=== PATIENT | female | born 1945 | race Caucasian/White ===

== ENCOUNTER 2023-07-17 12:53 | Emergency (ER) | payer MEDICARE ==
--- NOTE | 2023-07-17 13:02 | ED ---
Skin/Abscess/FB HPI - General Source: patient, RN notes reviewed Mode of arrival: ambulatory Limitations: no limitations <Pura Macias - Last Filed: 07/17/23 12:59> <Nae Valencia - Last Filed: 07/18/23 00:18> - General Chief complaint: Skin/Abscess/Foreign Body Stated complaint: SWELLING-INFECTION Time Seen by Provider: 07/17/23 16:00 - History of Present Illness Initial comments: This is an 78 year old female who presents to the emergency department for concerns of infection. States that she developed an ingrown hair to the suprapubic area, this then progressed. She saw an FINAL BLOCK PRESS OPERATOR 4 days ago and had this drained. States that since then the pain has increased. Reports associated swelling and redness as well, and states that her PCP instructed her to come here for evaluation. (Pura Macias) 78-year-old female presents to the emergency department reporting vaginal abscess. States that it developed after she had an ingrown hair. She saw her primary care doctor who referred her to an FINAL BLOCK PRESS OPERATOR. She saw them 4 days ago and they did an incision and drainage. They placed her on Bactrim twice daily. She has been taking the medications as directed however the pain has returned and the redness has continued to spread. She is not a diabetic. Denies any fevers. States that it has has not been draining. She denies any vaginal bleeding or discharge. No urinary complaints. Denies any issues with her bowel habits. No other alleviating, precipitating or modifying factors (Nae Valencia) - Related Data Home Medications Medication Instructions Recorded Confirmed Atorvastatin [Lipitor] 20 mg PO HS 06/04/23 06/04/23 Ibuprofen [Motrin Ib] 600 mg PO DIRECTED 06/04/23 06/04/23 Losartan Potassium 100 mg PO HS 06/04/23 06/04/23 Previous Rx's Medication Instructions Recorded Cephalexin [Keflex] 500 mg PO QID 1 Days #28 cap 07/17/23 Sulfamethox-Tmp 800-160Mg [Bactrim 2 each PO Q12HR #20 tab 07/17/23 Ds] Allergies Allergy/AdvReac Type Severity Reaction Status Date / Time NOVACAINE AdvReac Unknown PASSED OUT Uncoded 07/17/23 13:02 Review of Systems ROS Other: All systems not noted in ROS Statement are negative. <Pura Macias - Last Filed: 07/17/23 12:59> ROS Other: All systems not noted in ROS Statement are negative. <Nae Valencia - Last Filed: 07/18/23 00:18> ROS Statement: Those systems with pertinent positive or pertinent negative responses have been documented in the HPI. Past Medical History Past Medical History: Hyperlipidemia, Hypertension Additional Past Medical History / Comment(s): back pain, constipation, hx colon polyps History of Any Multi-Drug Resistant Organisms: None Reported Past Surgical History: Hysterectomy, Orthopedic Surgery Additional Past Surgical History / Comment(s): knee arthroscopy, colonscopy Past Anesthesia/Blood Transfusion Reactions: No Reported Reaction Past Psychological History: No Psychological Hx Reported Smoking Status: Current every day smoker Past Alcohol Use History: None Reported Additional Past Alcohol Use History / Comment(s): smokes 1/4 ppd, started smoking age 14. Past Drug Use History: None Reported - Past Family History Mother Family Medical History: No Reported History <Pura Macias - Last Filed: 07/17/23 12:59> General Exam <CarolynjoseyPura - Last Filed: 07/17/23 12:59> General appearance: alert, in no apparent distress Head exam: Present: atraumatic, normocephalic, normal inspection Eye exam: Present: normal appearance, PERRL, EOMI. Absent: scleral icterus, conjunctival injection, periorbital swelling ENT exam: Present: normal exam, mucous membranes moist Neck exam: Present: normal inspection. Absent: tenderness, meningismus, lymphadenopathy Respiratory exam: Present: normal lung sounds bilaterally. Absent: respiratory distress, wheezes, rales, rhonchi, stridor Cardiovascular Exam: Present: regular rate, normal rhythm, normal heart sounds. Absent: systolic murmur, diastolic murmur, rubs, gallop, clicks GI/Abdominal exam: Present: soft, normal bowel sounds. Absent: distended, tenderness, guarding, rebound, rigid External exam: Present: other (Large left labia majora abscess measuring approximately 5 x 3 cm. Central fluctuance with scab. There is some mild drainage from the scab site. No bleeding. There is cellulitis that extends to the mons. No crepitance) Extremities exam: Present: normal inspection, full ROM, normal capillary refill. Absent: tenderness, pedal edema, joint swelling, calf tenderness Back exam: Present: normal inspection Neurological exam: Present: alert, oriented X3, CN II-XII intact Psychiatric exam: Present: normal affect, normal mood Skin exam: Present: warm, dry, intact, normal color. Absent: rash <Nae Valencia - Last Filed: 07/18/23 00:18> - General Exam Comments Initial Comments: Visual Physical Exam Vital signs reviewed General: Well-appearing, nontoxic, no acute distress. Head: Normocephalic, atraumatic Eyes: PERRLA, EOMI ENT: Airway patent Chest: Nonlabored breathing Skin: No visual rash, normal skin tone Neuro: Alert and oriented 3 Musculoskeletal: No gross abnormalities I performed the QuickNote portion of this chart. Signed Pura Macias PA-C. (Pura Macias) Course Vital Signs 07/17/23 07/17/23 12:59 18:30 Temperature 98.6 F 98.3 F Pulse Rate 80 58 L Respiratory 20 16 Rate Blood Pressure 157/74 154/69 O2 Sat by Pulse 99 96 Oximetry Medical Decision Making - Lab Data Result diagrams: 07/17/23 14:00 07/17/23 14:00 <Nae Valencia - Last Filed: 07/18/23 00:18> - Medical Decision Making Was pt. sent in by a medical professional or institution (JUDD Meraz, WATER SERVICE DISPATCHER, urgent care, hospital, or snf...) When possible be specific @ -Patient was sent in by her primary care doctor Did you speak to anyone other than the patient for history (EMS, parent, family, police, friend...)? What history was obtained from this source @ -No Did you review nursing and triage notes (agree or disagree)? Why? @ -I reviewed and agree with nursing and triage notes Were old charts reviewed (outside hosp., previous admission, EMS record, old EKG, old radiological studies, urgent care reports/EKG's, snf records)? Report findings @ -No old charts were reviewed Differential Diagnosis (chest pain, altered mental status, abdominal pain women, abdominal pain men, vaginal bleeding, weakness, fever, dyspnea, syncope, headache, dizziness, GI bleed, back pain, seizure, CVA, palpatations, mental health, musculoskeletal)? @ -Cellulitis, abscess, fourniers gangrene, necrotizing fasciitis EKG interpreted by me (3pts min.). @ -Not done X-rays interpreted by me (1pt min.). @ -None done CT interpreted by me (1pt min.). @ -None done U/S interpreted by me (1pt. min.). @ -None done What testing was considered but not performed or refused? (CT, X-rays, U/S, labs)? Why? @ -None What meds were considered but not given or refused? Why? @ -IV antibiotics and admission. Patient was refusing admission Did you discuss the management of the patient with other professionals (ramona perez i.e. , PA, WATER SERVICE DISPATCHER, lab, RT, psych nurse, rn social work, bill clerk, teacher, earth science technical officer, casework supervisor)? Give summary @ -No Was smoking cessation discussed for >3mins.? @ -No Was critical care preformed (if so, how long)? @ -No Were there social determinants of health that impacted care today? How? (Homelessness, low income, unemployed, alcoholism, drug addiction, transportatio n, low edu. Level, literacy, decrease access to med. care, halfway, rehab)? @ -No Was there de-escalation of care discussed even if they declined (Discuss DNR or withdrawal of care, Hospice)? DNR status @ -No What co-morbidities impacted this encounter? (DM, HTN, Smoking, COPD, CAD, Cancer, CVA, ARF, Chemo, Hep., AIDS, mental health diagnosis, sleep apnea, morbid obesity)? @ -None Was patient admitted / discharged? Hospital course, mention meds given and route, prescriptions, significant lab abnormalities, going to OR and other pertinent info. @ -Upon arrival patient was placed into room 30. A thorough history and physical exam was performed. I did perform incision and drainage of the patient's left labia majora abscess. There was significant drainage obtained. I did culture the area. She was given a dose of Unasyn in the emergency department. I did recommend admission however patient was refusing. She is of sound mind and capable of making her own decisions. Informed her that the infection could get worse should she go home for which the patient understood. She will be placed on Keflex 4 times daily. Bactrim will be increased to 2 tablets twice a day. She needs to see her primary care doctor on Thursday for wound reevaluation and return should she be agreeable to admission. Patient was agreeable to this plan and was discharged with a guarded prognosis Undiagnosed new problem with uncertain prognosis? @ -Yes Drug Therapy requiring intensive monitoring for toxicity (Heparin, Nitro, Insulin, Cardizem)? @ -No Were any procedures done? @ -No Diagnosis/symptom? @ -Acute vaginal abscess and cellulitis, leukocytosis Acute, or Chronic, or Acute on Chronic? @ -Acute Uncomplicated (without systemic symptoms) or Complicated (systemic symptoms)? @ -Complicated Side effects of treatment? @ -ALLERGIC reaction Exacerbation, Progression, or Severe Exacerbation? @ -No Poses a threat to life or bodily function? How? (Chest pain, [place], [place], pneumonia, PE, COPD, DKA, ARF, appy, cholecystitis, CVA, Diverticulitis, Homicidal, Suicidal, threat to staff... and all critical care pts) @ -No (Nae Valencia) - Lab Data Lab Results 07/17/23 07/17/23 07/17/23 Range/Units 14:00 14:00 14:00 WBC 14.3 H (3.8-10.6) k/uL RBC 4.23 (3.80-5.40) m/uL Hgb 13.7 (11.4-16.0) gm/dL Hct 41.4 (34.0-46.0) % MCV 97.8 (80.0-100.0) fL MCH 32.3 (25.0-35.0) pg MCHC 33.1 (31.0-37.0) g/dL RDW 13.0 (11.5-15.5) % Plt Count 310 (150-450) k/uL MPV 8.6 Neutrophils % 84 % Lymphocytes % 10 % Monocytes % 4 % Eosinophils % 1 % Basophils % 0 % Neutrophils # 12.0 H (1.3-7.7) k/uL Lymphocytes # 1.5 (1.0-4.8) k/uL Monocytes # 0.5 (0-1.0) k/uL Eosinophils # 0.1 (0-0.7) k/uL Basophils # 0.0 (0-0.2) k/uL ESR 18 (0-20) mm/hr Sodium 137 (137-145) mmol/L Potassium 4.6 (3.5-5.1) mmol/L Chloride 102 (98-107) mmol/L Carbon Dioxide 22 (22-30) mmol/L Anion Gap 13 mmol/L BUN 17 (7-17) mg/dL Creatinine 1.10 H (0.52-1.04) mg/dL Est GFR (CKD-EPI)AfAm 55 (>60 ml/min/1.73 sqM) Est GFR (CKD-EPI)NonAf 48 (>60 ml/min/1.73 sqM) Glucose 104 H (74-99) mg/dL Plasma Lactic Acid Kulwinder 1.4 (0.7-2.0) mmol/L Calcium 9.9 (8.4-10.2) mg/dL Total Bilirubin 0.7 (0.2-1.3) mg/dL AST 23 (14-36) U/L ALT 15 (4-34) U/L Alkaline Phosphatase 77 (38-126) U/L C-Reactive Protein 2.9 H (<1.0) mg/dL Total Protein 8.1 (6.3-8.2) g/dL Albumin 4.9 (3.5-5.0) g/dL Disposition <Pura Macias - Last Filed: 07/17/23 12:59> Is patient prescribed a controlled substance at d/c from ED?: No Time of Disposition: 18:11 <Nae Valencia - Last Filed: 07/18/23 00:18> Clinical Impression: Abscess of vagina, Cellulitis Disposition: HOME SELF-CARE Condition: Stable Instructions (If sedation given, give patient instructions): Abscess Incision and Drainage (ED), Abscess (ED) Additional Instructions: Take the Keflex 4 times daily starting tomorrow. Take 2 tablets of Bactrim twice daily. Return should your symptoms not improve in the next 48 hours. I did recommend admission today Prescriptions: Sulfamethox-Tmp 800-160Mg [Bactrim Ds] 2 each PO Q12HR #20 tab Cephalexin [Keflex] 500 mg PO QID 1 Days #28 cap Referrals: Peewee Gonzalez MD [Primary Care Provider] - 1-2 days Jill Laguerre MD [STAFF PHYSICIAN] - 1-2 days
[2023-07-17 14:34] LABS: Basophils % (A) 0 %; Eosinophils # (A) 0.1 k/uL (0-0.7); Eosinophils % (A) 1 %; HCT 41.4 % (34.0-46.0); HGB 13.7 gm/dL (11.4-16.0); Lymphocytes # (A) 1.5 k/uL (1.0-4.8); Lymphocytes % (A) 10 %; MCH 32.3 pg (25.0-35.0); MCHC 33.1 g/dL (31.0-37.0); MCV 97.8 fL (80.0-100.0); Mean Platelet Volume 8.6; Monocytes # (A) 0.5 k/uL (0-1.0); Monocytes % (A) 4 %; Neutrophils % (A) 84 %; Platelet Count 310 k/uL (150-450); RBC 4.23 m/uL (3.80-5.40); WBC 14.3 k/uL (3.8-10.6)
[2023-07-17 15:03] LABS: ALT 15 U/L (4-34); AST 23 U/L (14-36); African American GFR (CKD) 55 (>60 ml/min/1.73 sqM); Albumin 4.9 g/dL (3.5-5.0); Alkaline Phosphatase 77 U/L (38-126); Anion Gap 13 mmol/L; Blood Urea Nitrogen 17 mg/dL (7-17); C Reactive Protein 2.9 mg/dL (<1.0); Calcium 9.9 mg/dL (8.4-10.2); Carbon Dioxide 22 mmol/L (22-30); Chloride 102 mmol/L (98-107); Glucose 104 mg/dL (74-99); Non-African American GFR(CKD) 48 (>60 ml/min/1.73 sqM); Potassium 4.6 mmol/L (3.5-5.1); Sodium 137 mmol/L (137-145); Total Bilirubin 0.7 mg/dL (0.2-1.3); Total Protein 8.1 g/dL (6.3-8.2)
[2023-07-17 16:15] LABS: Erythrocyte Sedimentation Rate 18 mm/hr (0-20)
[2023-07-17] MEDS ORDERED: LIDOCAINE 1% INJ 10MG/ML (20 ML MDV) SQ ONE (17:06)
[2023-07-17] MEDS ORDERED: AMPICILLIN-SULBACTAM 3 GM in SODIUM CHLORIDE 0.9% 100 ML IVPB STA (17:06)
[2023-07-17] MEDS ORDERED: VANCOMYCIN IV PER PHARMACY 1 EACH MISC MISCELLANE PRN (17:06)
[2023-07-17] MEDS ORDERED: VANCOMYCIN 750 MG in SODIUM CHLORIDE 0.9% 250 ML IVPB ONE (17:30)
[2023-07-17 18:31] VITALS: BP 154/69; PULSE 58; RESP 16; TEMP 98.3
--- NOTE | 2023-07-18 00:21 | ED ---
Medical Decision Making - Lab Data Result diagrams: 07/17/23 14:00 07/17/23 14:00 Lab Results 07/17/23 07/17/23 07/17/23 Range/Units 14:00 14:00 14:00 WBC 14.3 H (3.8-10.6) k/uL RBC 4.23 (3.80-5.40) m/uL Hgb 13.7 (11.4-16.0) gm/dL Hct 41.4 (34.0-46.0) % MCV 97.8 (80.0-100.0) fL MCH 32.3 (25.0-35.0) pg MCHC 33.1 (31.0-37.0) g/dL RDW 13.0 (11.5-15.5) % Plt Count 310 (150-450) k/uL MPV 8.6 Neutrophils % 84 % Lymphocytes % 10 % Monocytes % 4 % Eosinophils % 1 % Basophils % 0 % Neutrophils # 12.0 H (1.3-7.7) k/uL Lymphocytes # 1.5 (1.0-4.8) k/uL Monocytes # 0.5 (0-1.0) k/uL Eosinophils # 0.1 (0-0.7) k/uL Basophils # 0.0 (0-0.2) k/uL ESR 18 (0-20) mm/hr Sodium 137 (137-145) mmol/L Potassium 4.6 (3.5-5.1) mmol/L Chloride 102 (98-107) mmol/L Carbon Dioxide 22 (22-30) mmol/L Anion Gap 13 mmol/L BUN 17 (7-17) mg/dL Creatinine 1.10 H (0.52-1.04) mg/dL Est GFR (CKD-EPI)AfAm 55 (>60 ml/min/1.73 sqM) Est GFR (CKD-EPI)NonAf 48 (>60 ml/min/1.73 sqM) Glucose 104 H (74-99) mg/dL Plasma Lactic Acid Kulwinder 1.4 (0.7-2.0) mmol/L Calcium 9.9 (8.4-10.2) mg/dL Total Bilirubin 0.7 (0.2-1.3) mg/dL AST 23 (14-36) U/L ALT 15 (4-34) U/L Alkaline Phosphatase 77 (38-126) U/L C-Reactive Protein 2.9 H (<1.0) mg/dL Total Protein 8.1 (6.3-8.2) g/dL Albumin 4.9 (3.5-5.0) g/dL Disposition Clinical Impression: Abscess of vagina, Cellulitis Disposition: HOME SELF-CARE Condition: Stable Instructions (If sedation given, give patient instructions): Abscess Incision and Drainage (ED), Abscess (ED) Additional Instructions: Take the Keflex 4 times daily starting tomorrow. Take 2 tablets of Bactrim twice daily. Return should your symptoms not improve in the next 48 hours. I di d recommend admission today Prescriptions: Sulfamethox-Tmp 800-160Mg [Bactrim Ds] 2 each PO Q12HR #20 tab Cephalexin [Keflex] 500 mg PO QID 1 Days #28 cap Is patient prescribed a controlled substance at d/c from ED?: No Referrals: Jill Laguerre MD [STAFF PHYSICIAN] - 1-2 days Peewee Gonzalez MD [Primary Care Provider] - 1-2 days Procedures - Incision & Drainage Consent Obtained: verbal consent Indication: Abscess Site: vulva/vagina Size (cm): 5 Anesthetic Used: lidocaine 1% Amount (mLs): 8 I&D Cleaning Method: Chloroprep Sterile Field Used?: Yes Scalpel Used: #11 Needle Aspiration Performed?: No Irrigation Performed?: No I&D Drainage Obtained: Pus Culture Obtained?: Yes Patient Tolerated Procedure: well, no complications
[2023-07-18] MEDS ORDERED: VANCOMYCIN 750 MG in SODIUM CHLORIDE 0.9% 250 ML IVPB SCH (12:00)
== END 2023-07-17 18:30 | disposition home or self-care (01) ==
LOC: EC 12:53
DX: N76.0 Acute vaginitis (principal); B97.0 Adenovirus as the cause of diseases classified elsewhere; I10 Essential (primary) hypertension; E78.5 Hyperlipidemia, unspecified; F17.210 Nicotine dependence, cigarettes, uncomplicated; Z88.8 Allergy status to other drugs, medicaments and biological substances; Z79.899 Other long term (current) drug therapy
CPT/HCPCS: 36415; 80053; 85652; 83605; 85025; 86140; 87040; 87070; 87205; 99283; 96365; J2001; J0295

== ENCOUNTER → 2023-07-17 | Outpatient (CLI) | payer MEDICARE | END | disposition home or self-care (01) | LOC: LABWHC1 11:22 | PROVIDERS: ATTEND Nurse Practitioner Family | DX: E55.9 Vitamin D deficiency, unspecified (principal) | CPT/HCPCS: 36415; 82306 ==

== ENCOUNTER 2024-07-06 13:47 | Emergency (ER) | payer MEDICARE ==
[2024-07-06] MEDS ORDERED: KETOROLAC 15 MG/ML 1 ML VIAL ONE (19:51)
--- NOTE | 2024-08-08 14:26 | XR ---
Site ID [facility] Reyna Perales ID [id number] Order # Procedure XR 2 VIEW CHEST EXAMINATION TYPE: XR chest 2V DATE OF EXAM: 07/07/2024 8:20 AM CLINICAL INDICATION: Pain COMPARISON: Chest radiographs from TECHNIQUE: XR chest 2V Frontal view of the chest. FINDINGS: Lungs/Pleura: There is flattening of the diaphragm with increased lucency of the lungs. No evidence o f pneumothorax, pleural effusion or focal consolidation. Pulmonary vascularity: Unremarkable. Heart/mediastinum: Cardiomediastinal silhouette is unremarkable. Musculoskeletal: No acute osseous pathology. Remote sided right rib injuries. IMPRESSION: 1. No acute cardiopulmonary disease process. 2. COPD changes.
== END 2024-07-06 20:00 | disposition home or self-care (01) ==
LOC: EC 13:47
CPT/HCPCS: 71046; 93005; 96374; 99285; 99406

== ENCOUNTER → 2025-01-24 | Day surgery (SDC) | payer MEDICARE ==
[2025-01-20 10:32] VITALS: BMI 19.5
[~2025-01-24] MED LIST: LACTATED RINGERS 1,000 ML IV SCH; LIDOCAINE 1% (10MG/ML) FOR IV START INTRADERMA PRN; LIDOCAINE 1% INJ 10MG/ML (20 ML MDV) ONE; PROPOFOL 10 MG/ML 20 ML VIAL IV ONE
[2025-01-24] MEDS: IV FLUID CONTINUATION 1,000 ML IV ONE ×2 (07:26→07:30)
[2025-01-24 07:36] VITALS: TEMP 97.8
--- NOTE | 2025-01-24 08:49 | P.PCN ---
Date of Procedure: 01/24/25 Procedure(s) Performed: BRIEF HISTORY: Patient is a 79-year-old, pleasant, white female scheduled for an upper endoscopy as a part evaluation of black tarry stools on and off for the last few months duration.. PROCEDURE PERFORMED: Esophagogastroduodenoscopy with biopsy. PREOPERATIVE DIAGNOSIS: Intermittent black tarry stools. IV sedation per anesthesia. PROCEDURE: After informed consent was obtained, the patient was brought into the endoscopy unit. IV sedation was administered by Anesthesia under continuous monitoring. Initially the Olympus GIF-140 video endoscope was inserted into the mouth. Esophagus intubated without any difficulty. It was gradually advanced into the stomach and duodenum and carefully examined. The bulb and the second part of the duodenum appeared normal. The scope at this time was withdrawn to the stomach, adequately insufflated with air, and upon careful examination, mucosa of the antrum 5 mm superficial antral ulcer and erosive gastritis and biopsies were done for this area. Mucosa of, body, cardia and the fundus appeared normal. The scope was then withdrawn into the esophagus. Mild hiatal hernia noted. The GE junction was located at 39 cm from the incisors. Was a 5 mm tongue of Willett's appearing mucosa proximal to the GE junction that was biopsied. The rest of the esophagus appeared normal. There were no erosions or ulcerations seen and the patient tolerated the procedure well. IMPRESSION: 1. 5 mm superficial antral ulcer and erosive gastritis. 2. Small hiatal hernia 3. 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 RECOMMENDATIONS: The findings of this examination were discussed with the patient as well as her family.. Follow-up with the biopsy results. She was advised to start on omeprazole 20 mg daily for 3 months. Follow antireflux measures. Avoid NSAIDs.
[2025-01-24 09:14] VITALS: BP 162/77; PULSE 64; RESP 14
== END ==
LOC: ORWHC2ENDO 06:59
PROVIDERS: ATTEND Internal Medicine Gastroenterology
DX: K29.50 Unspecified chronic gastritis without bleeding (principal); K22.70 Barrett's esophagus without dysplasia; K44.9 Diaphragmatic hernia without obstruction or gangrene; K25.4 Chronic or unspecified gastric ulcer with hemorrhage
CPT/HCPCS: 43239; J2003; J2704; 88305